=== PATIENT | female | born 1950 | race Caucasian/White ===

== ENCOUNTER 2016-08-12 18:19 | Emergency (ER) | payer BC ==
[~2016-08-12] VITALS: Ht 165.1 cm; Wt 72.6 kg
[~2016-08-12 18:19] MED LIST: AMLO10TA2 PO; LISI40TA PO
[2016-08-12] MEDS ORDERED: ONDANSETRON PF 4 MG/2 ML VIAL. IV ONE (19:00)
[2016-08-12 19:14] LABS: BASO # 0.1 x10^3/uL (0.0-0.2); BASO % 1 % (0-3); EOS % 3 % (0-3); HEMATOCRIT 44.5 % (36.0-47.0); HEMOGLOBIN 15.1 g/dL (12.0-15.5); LYMPH # 5.2 x10^3/uL (1.0-4.8); LYMPH % 44 % (24-48); MEAN CORPUSCULAR HEMOGLOBIN 32 pg (25-35); MEAN CORPUSCULAR HGB CONC 34 g/dL (31-37); MEAN CORPUSCULAR VOLUME 96 fL (79-100); MONO % 6 % (0-9); NEUT % 46 % (31-73); PLATELET COUNT 209 x10^3/uL (140-400); RED BLOOD COUNT 4.65 x10^6/uL (3.50-5.40); RED CELL DISTRIBUTION WIDTH 12.9 % (11.5-14.5); WHITE BLOOD COUNT 11.9 x10^3/uL (4.0-11.0)
[2016-08-12 19:23] LABS: CREATININE 0.9 mg/dL (0.6-1.0); POTASSIUM 3.3 mmol/L (3.5-5.1)
--- NOTE | 2016-08-12 19:28 | RAD ---
PQRS STATEMENT One or more of the following individualized dose reduction techniques were utilized for this study: 1.Automated exposure control 2.Adjustment of the mA and/or kV according to patient size 3.Use of iterative reconstruction technique CT HEAD INDICATION:sudden onset severe dizziness at 1800 today, prior sentReason: sudden onset vertigo, mild headache / Spl. Instructions: / History: COMPARISON:CT head from October 07 2006 TECHNIQUE: 5 mm contiguous axial images were obtained from the skull base to the vertex in both bone and soft tissue algorithm. FINDINGS: There is prominence of the ventricles and sulci in a pattern compatible with generalized cerebral volume loss. There are vague areas of low attenuation in the periventricular white matter in a symmetric fashion suggestive of chronic small vessel ischemic disease. No evidence of acute intracranial hemorrhage. No extra-axial fluid collections. No mass effect or midline shift. Ventricular size is appropriate. Basal cisterns are patent. No fractures identified. Brandon-white differentiation is preserved. Globes and orbits are within normal limits. Paranasal sinuses and mastoid air cells are clear. IMPRESSION: No acute intracranial hemorrhage or gross mass effect. Electronically signed by: Anthony Cherry (August 12, 2016 19:27:33)
[2016-08-12 19:29] LABS: TOTAL BILIRUBIN 0.5 mg/dL (0.2-1.0); TOTAL PROTEIN 7.9 g/dL (6.4-8.2)
[2016-08-12 20:30] VITALS: BP 123/68
[2016-08-12] MEDS ORDERED: MECL25TA3 PO (21:59)
--- NOTE | 2016-08-12 21:59 | PHYS DOC ---
Past Medical History Past Medical History: Diverticulitis, Hypertension, Stroke Past Surgical History: Appendectomy, Cholecystectomy, Hysterectomy, Other Additional Past Surgical Histo: part of colon/intestines removed Alcohol Use: None Drug Use: None Adult General Chief Complaint Chief Complaint: dizziness HPI HPI Patient is a 65 year old female who presents by EMS with acute onset of dizziness while at the [facility]. Patient states she was feeling fine, she was sitting at the [facility], she began to feel very dizzy," hit her" suddenly. She got up and felt like she couldn't walk straight, she was very dizzy, she ran into a machine. Someone called EMS and she had some IV Zofran en route. She does not feel much better. She has a headache but describes it as "not bad". This is the third time in a month that she has had an episode of this type of dizziness. The other 2 have not been this bad. About 1 month ago, she had an episode, also while at the [facility], that lasted about 1 minute. It was not as severe and she did not try to get up and walk. Then this past Wednesday she had another very short episode it went away" no time at all". Today's episode is more severe and has not gone away by itself. It is associated with nausea and dry heaves. Patient "doesn't like to go to the doctor" she "doesn't like to take medicine" and she states she is in good general health. Review of Systems Review of Systems Constitutional: Denies fever or chills [] Eyes: Denies change in visual acuity, redness, or eye pain [] HENT: Denies nasal congestion or sore throat [] Respiratory: Denies cough or shortness of breath [] Cardiovascular: Denies chest pain GI: Denies abdominal pain, bloody stools or diarrhea [] : Denies dysuria or hematuria [] Musculoskeletal: Denies back pain or joint pain [] Integument: Denies rash or skin lesions [] Neurologic: As in history of present illness. Denies focal weakness. Current Medications Current Medications Current Medications Medications (Trade) Dose Ordered Sig/Lalo Start Time Stop Time Status Last Admin Dose Admin Diazepam (Valium) 10 mg 1X ONCE 08/12/16 20:15 08/12/16 20:16 DC 08/12/16 20:15 10 MG Ondansetron HCl (Zofran) 4 mg 1X ONCE 08/12/16 19:00 08/12/16 19:01 DC 08/12/16 19:00 4 MG Allergies Allergies Allergies Coded Allergies Type Severity Reaction Last Updated Verified hydrocodone Allergy Mild nausea/vomiting 08/27/13 Yes Physical Exam Physical Exam Constitutional: Well developed, well nourished, appears to be having acute vertigo, worsens with position change, dry heaves from time to time HENT: Normocephalic, atraumatic, bilateral external ears normal, oropharynx moist, no oral exudates, nose normal. [] Eyes: PERRLA, EOMI, conjunctiva normal, no discharge. [] Neck: Normal range of motion, no stridor. [] Cardiovascular:Heart rate regular rhythm, no murmur [] Lungs & Thorax: Bilateral breath sounds clear to auscultation [] Abdomen: Bowel sounds normal, soft, no tenderness, no masses, no pulsatile masses. [] Skin: Warm, dry, no erythema, no rash. [] Extremities: No tenderness, no cyanosis, no clubbing, ROM intact, no edema. 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 [] Current Patient Data Vital Signs Vital Signs Date Time Temp Pulse Resp B/P Pulse Ox O2 Delivery O2 Flow Rate FiO2 08/12/16 20:30 52 18 123/68 94 Room Air 08/12/16 18:30 97.8 97.8 Lab Values Laboratory Tests Test 08/12/16 18:32 08/12/16 18:55 White Blood Count 11.9x10^3/uL (4.0-11.0) H Red Blood Count 4.65x10^6/uL (3.50-5.40) Hemoglobin 15.1g/dL (12.0-15.5) Hematocrit 44.5% (36.0-47.0) Mean Corpuscular Volume 96fL (79-100) Mean Corpuscular Hemoglobin 32pg (25-35) Mean Corpuscular Hemoglobin Concent 34g/dL (31-37) Red Cell Distribution Width 12.9% (11.5-14.5) Platelet Count 209x10^3/uL (140-400) Neutrophils (%) (Auto) 46% (31-73) Lymphocytes (%) (Auto) 44% (24-48) Monocytes (%) (Auto) 6% (0-9) Eosinophils (%) (Auto) 3% (0-3) Basophils (%) (Auto) 1% (0-3) Neutrophils # (Auto) 5.5x10^3uL (1.8-7.7) Lymphocytes # (Auto) 5.2x10^3/uL (1.0-4.8) H Monocytes # (Auto) 0.7x10^3/uL (0.0-1.1) Eosinophils # (Auto) 0.4x10^3/uL (0.0-0.7) Basophils # (Auto) 0.1x10^3/uL (0.0-0.2) Sodium Level 139mmol/L (136-145) Potassium Level 3.3mmol/L (3.5-5.1) L Chloride Level 100mmol/L (98-107) Carbon Dioxide Level 25mmol/L (21-32) Anion Gap 14 (6-14) Blood Urea Nitrogen 14mg/dL (7-20) Creatinine 0.9mg/dL (0.6-1.0) Estimated GFR (Cockcroft-Gault) 63.0 BUN/Creatinine Ratio 16 (6-20) Glucose Level 105mg/dL (70-99) H Calcium Level 9.0mg/dL (8.5-10.1) Total Bilirubin 0.5mg/dL (0.2-1.0) Aspartate Amino Transferase (AST) 22U/L (15-37) Alanine Aminotransferase (ALT) 41U/L (14-59) Alkaline Phosphatase 61U/L (46-116) Total Protein 7.9g/dL (6.4-8.2) Albumin 4.0g/dL (3.4-5.0) Albumin/Globulin Ratio 1.0 (1.0-1.7) Laboratory Tests 08/12/16 18:32 Laboratory Tests 08/12/16 18:55 EKG EKG 12-lead EKG read by me. Sinus rhythm. Heart rate 85. There are no acute ST or T wave changes indicative of ischemia or infarction. No STEMI. 1828 [] Radiology/Procedures Radiology/Procedures CT scan of the head was interpreted by the radiologist, negative for acute findings. [] Course & Med Decision Making Course & Med Decision Making Pertinent Labs and Imaging studies reviewed. (See chart for details) 65-year-old female with acute onset of vertigo with only a mild headache and no other neurologic symptoms. The vertigo is very positional. I suspect benign positional/labyrinthine vertigo. Discussed with the patient that we will give her some IV medications for vertigo, check labs and CT, she is agreeable to that plan. CT, labs negative for acute findings. The patient had a dose of IV Valium 5 mg and had slight improvement but not significant improvement. She continued to be very alert. I repeated a dose of IV Valium 10 mg which put her to sleep. She slept soundly for about an hour, she woke up and stated her vertigo and headache were gone. Patient's son is here to take her home. I discussed benign positional vertigo with the patient and her son. Prescription for meclizine for when necessary use should the vertigo returned. I advised ENT follow-up if it continues or returns [] Dragon Disclaimer Dragon Disclaimer This electronic medical record was generated, in whole or in part, using a voice recognition dictation system. Departure Departure Impression: Primary Impression: Benign positional vertigo Disposition: 01 HOME, SELF-CARE Condition: IMPROVED Referrals: EMMANUEL HANSEN MD (PCP) Patient Instructions: Benign Positional Vertigo Additional Instructions: Home to rest. No driving for 12 hours due to the medications he was given in the emergency department. If vertigo returns or persists, take meclizine as directed. No driving while taking this, it may be sedating. If vertigo persists for more than 2-3 days, see your doctor or see Ear nose and throat doctor, this may be an inner ear disturbance. Scripts Meclizine Hcl 25 Mg Tablet1 Tab PO TID PRN vertigo #30 TAB As needed for vertigo Prov:GEORGIA MENDOZA MD 08/12/16 GEORGIA MENDOZA MD August 12, 2016 21:59
--- NOTE | 2016-08-13 06:48 | EKG ---
[facility] [address] [place] [address] Test Date: 2016-08-12 Test Time: 18:28:28 Pat Name: MATTHEW SHAW Department: Room: Gender: F Towing Pilot: DINAH : 1950 Requested By: GEORGIA MENDOZA Order Number: [id number] Reading MD: Chery Maria Measurements Intervals [place] Rate: 55 P: [place]: QRS: -2 QRSD: 98 T: 24 QT: 458 QTc: 440 Interpretive Statements ATRIAL FIBRILLATION LEFTWARD AXIS INCOMPLETE RIGHT BUNDLE BRANCH BLOCK QRS(T) CONTOUR ABNORMALITY CONSIDER ANTEROLATERAL MYOCARDIAL DAMAGE RI6.01 Unconfirmed report No previous ECG available for comparison Electronically Signed On 08-16-2016 17:34:49 CDT by Chery Maria
== END 2016-08-12 22:05 | disposition home or self-care (01) ==
LOC: ER 18:19
DX: H81.10 Benign paroxysmal vertigo, unspecified ear (principal); I10 Essential (primary) hypertension; I48.91 Unspecified atrial fibrillation; Z90.710 Acquired absence of both cervix and uterus; Z90.49 Acquired absence of other specified parts of digestive tract; Z98.890 Other specified postprocedural states; Z86.73 Personal history of transient ischemic attack (TIA), and cerebral infarction without residual deficits; Z88.5 Allergy status to narcotic agent
CPT/HCPCS: 36415; 70450; 80053; 85027; 93005; 96374; 96375; 96376; 99285; J2405; J3360

== ENCOUNTER 2016-11-05 10:38 | Emergency (ER) | payer BC ==
[~2016-11-05] VITALS: Ht 172.7 cm; Wt 72.6 kg
[~2016-11-05 10:38] MED LIST changes: +MECL25TA3 PO
--- NOTE | 2016-11-05 11:32 | PHYS DOC ---
Past Medical History Past Medical History: Diverticulitis, Hypertension, Stroke Past Surgical History: Appendectomy, Cholecystectomy, Hysterectomy, Other Additional Past Surgical Histo: part of colon/intestines removed Additional Information: 1 PPD Alcohol Use: None Drug Use: None Adult General Chief Complaint Chief Complaint: DIZZY/LIGHT HEADED HPI HPI Patient is a 65 year old female who presents with complaint of near syncopal episode. Patient states that this took place shortly prior to arrival. Patient states that she stood up suddenly and became very dizzy and lightheaded. Patient states that she felt like she was going to "fall out." The patient states that she started getting darkening of vision but states that she did not fully pass out. The patient states that she has had a similar episode 2 months ago. Patient denied any associated chest pain with her symptoms. The patient has history of hypertension and CVA with no noticeable residual deficits. Patient family state that the patient has had mild symptoms of dizziness with standing over the past several months. The patient was supposed to follow-up with Dr. Valiente of neurology for EEG testing after her last episode 2 months ago but has not completed this. Patient states that she has clouding of her vision currently but that it has been improved from onset of symptoms. Patient denies any shortness of breath or nausea currently. Review of Systems Review of Systems Constitutional: Denies fever or chills [] Eyes: Denies change in visual acuity, redness, or eye pain [] HENT: Denies nasal congestion or sore throat [] Respiratory: Denies cough or shortness of breath [] Cardiovascular: Near syncope, denies chest pain [] GI: Denies abdominal pain, nausea, vomiting, bloody stools or diarrhea [] : Denies dysuria or hematuria [] Musculoskeletal: Denies back pain or joint pain [] Integument: Denies rash or skin lesions [] Neurologic: Denies headache, focal weakness or sensory changes [] Current Medications Current Medications Current Medications Medications (Trade) Dose Ordered Sig/Lalo Start Time Stop Time Status Last Admin Dose Admin Sodium Chloride 1,000 ml @ 1,000 mls/hr Q1H 11/05/16 12:00 11/05/16 12:59 DC 11/05/16 11:44 1,000 MLS/HR Allergies Allergies Allergies Coded Allergies Type Severity Reaction Last Updated Verified hydrocodone Allergy Mild nausea/vomiting 08/27/13 Yes Physical Exam Physical Exam Constitutional: Well developed, well nourished, afebrile, appears mildly anxious. [] HENT: Normocephalic, atraumatic, bilateral external ears normal, oropharynx moist, no oral exudates, nose normal. [] Eyes: PERRLA, EOMI, conjunctiva normal, no discharge. [] Neck: Normal range of motion, no tenderness, supple, no stridor. [] Cardiovascular:Heart rate regular rhythm, no murmur [] Lungs & Thorax: Bilateral breath sounds clear to auscultation [] Abdomen: Bowel sounds normal, soft, no tenderness, no masses, no pulsatile masses. [] Skin: Warm, dry, no erythema, no rash. [] Back: No tenderness, no CVA tenderness. [] Extremities: No tenderness, no cyanosis, no clubbing, ROM intact, no edema. [] Neurologic: Alert and oriented X 3, normal motor function, normal sensory function, no focal deficits noted. [] Current Patient Data Vital Signs Vital Signs Date Time Temp Pulse Resp B/P (MAP) Pulse Ox O2 Delivery O2 Flow Rate FiO2 11/05/16 13:37 53 18 132/89 (103) 98 Room Air 11/05/16 10:58 98.3 98.3 Lab Values Laboratory Tests Test 11/05/16 11:05 11/05/16 11:19 11/05/16 11:23 Urine Collection Type Void Urine Color Yellow Urine Clarity Clear Urine pH 6.0 Urine Specific [place] 1.010 Urine Protein Negative mg/dL (NEG-TRACE) Urine Glucose (UA) Negative mg/dL (NEG) Urine Ketones (Stick) Negative mg/dL (NEG) Urine Blood Moderate (NEG) Urine Nitrite Negative (NEG) Urine Bilirubin Negative (NEG) Urine Urobilinogen Dipstick 0.2 mg/dL (0.2 mg/dL) Urine Leukocyte Esterase Negative (NEG) Urine RBC Rare /HPF (0-2) Urine WBC Rare /HPF (0-4) Urine Squamous Epithelial Cells Occ /LPF Urine Bacteria Few /HPF (0-FEW) Glucose (Fingerstick) 114 mg/dL (70-99) H White Blood Count 9.3 x10^3/uL (4.0-11.0) Red Blood Count 4.64 x10^6/uL (3.50-5.40) Hemoglobin 15.1 g/dL (12.0-15.5) Hematocrit 44.4 % (36.0-47.0) Mean Corpuscular Volume 96 fL (79-100) Mean Corpuscular Hemoglobin 33 pg (25-35) Mean Corpuscular Hemoglobin Concent 34 g/dL (31-37) Red Cell Distribution Width 12.7 % (11.5-14.5) Platelet Count 209 x10^3/uL (140-400) Neutrophils (%) (Auto) 61 % (31-73) Lymphocytes (%) (Auto) 27 % (24-48) Monocytes (%) (Auto) 7 % (0-9) Eosinophils (%) (Auto) 4 % (0-3) H Basophils (%) (Auto) 1 % (0-3) Neutrophils # (Auto) 5.7 x10^3uL (1.8-7.7) Lymphocytes # (Auto) 2.5 x10^3/uL (1.0-4.8) Monocytes # (Auto) 0.6 x10^3/uL (0.0-1.1) Eosinophils # (Auto) 0.4 x10^3/uL (0.0-0.7) Basophils # (Auto) 0.1 x10^3/uL (0.0-0.2) Sodium Level 141 mmol/L (136-145) Potassium Level 4.3 mmol/L (3.5-5.1) Chloride Level 103 mmol/L (98-107) Carbon Dioxide Level 25 mmol/L (21-32) Anion Gap 13 (6-14) Blood Urea Nitrogen 12 mg/dL (7-20) Creatinine 0.9 mg/dL (0.6-1.0) Estimated GFR (Cockcroft-Gault) 63.0 BUN/Creatinine Ratio 13 (6-20) Glucose Level 106 mg/dL (70-99) H Calcium Level 9.5 mg/dL (8.5-10.1) Magnesium Level 2.0 mg/dL (1.8-2.4) Total Bilirubin 0.5 mg/dL (0.2-1.0) Aspartate Amino Transferase (AST) 27 U/L (15-37) Alanine Aminotransferase (ALT) 39 U/L (14-59) Alkaline Phosphatase 76 U/L (46-116) Creatine Kinase 175 U/L (26-192) Creatine Kinase MB (Mass) 1.2 ng/mL (0.0-3.6) Creatine Kinase MB Relative Index 0.7 % (0-4) Troponin I Quantitative < 0.017 ng/mL (0.000-0.055) Total Protein 7.5 g/dL (6.4-8.2) Albumin 4.2 g/dL (3.4-5.0) Albumin/Globulin Ratio 1.3 (1.0-1.7) Laboratory Tests 11/05/16 11:23 Laboratory Tests 11/05/16 11:23 EKG EKG Interpreted by me: Heart rate 52, sinus rhythm, normal intervals, leftward axis , no acute ST elevations or depressions [] Radiology/Procedures Radiology/Procedures [address] [address] IMAGING REPORT Signed PATIENT: MATTHEW SHAW ACCOUNT: [id number] : 1950 LOCATION: ER AGE: 65 SEX: F EXAM STATUS: REG ER ORD. PHYSICIAN: UMER BALLESTEROS MD REASON: near syncope PROCEDURE: PORTABLE CHEST 1V Single AP chest radiograph 11/05/2016 Indication: Syncope. Comparison: Chest radiograph 09/22/2010. Findings: Cardiac and mediastinal silhouettes are within normal limits. No pleural effusion, pneumothorax or focal consolidation. There is minimal bibasilar atelectasis. Impression: Minimal bibasilar atelectasis without evidence for acute consolidating pneumonia or CHF. DICTATED and SIGNED BY: [place] MARLEY MD DATE: 11/05/16 1150 CC: UMER BALLESTEROS MD; EMMANUEL HANSEN MD ~ [address] [address] IMAGING REPORT Signed PATIENT: MATTHEW SHAW ACCOUNT: [id number] : 1950 LOCATION: ER AGE: 65 SEX: F EXAM STATUS: REG ER ORD. PHYSICIAN: UMER BALLESTEROS MD REASON: dizziness PROCEDURE: CT HEAD WO CONTRAST CT of the head without contrast, 11/05/2016: History: Dizziness Comparison is made to a study from 08/12/2016. The ventricles are within normal limits in size. There is no shift of the midline structures. There is no evidence of acute intracranial hemorrhage or mass effect. There are unchanged patchy lucencies in the deep white matter bilaterally compatible with chronic ischemic change. IMPRESSION: 1. Unchanged bilateral deep white matter lucencies compatible with chronic ischemic change. 2. No acute intracranial abnormality is detected. RS Compliance Statement: One or more of the following individualized dose reduction techniques were utilized for this examination: 1. Automated exposure control 2. Adjustment of the mA and/or kV according to patient size 3. Use of iterative reconstruction technique DICTATED and SIGNED BY: LORAINE HOLLAND MD DATE: 11/05/16 1213 CC: UMER BALLESTEROS MD; EMMANUEL HANSEN MD ~ [] Course & Med Decision Making Course & Med Decision Making Pertinent Labs and Imaging studies reviewed. (See chart for details) Patient's lab work and imaging are unremarkable. Patient was given IV fluids in the emergency department. On reevaluation, patient states that she feels much better and all symptoms have resolved. The patient was able to ambulate in the emergency department with no dizziness and with an unfaltering gait. The patient states that she wants to go home at this time. The patient's symptoms may have been secondary to orthostatic hypotension, however further workup will be needed. The patient is appropriate for outpatient workup at this time. The patient was instructed to follow-up with the cardiology clinic in 2 days for reevaluation. The patient was also referred back to Dr. Valiente to complete her outpatient workup in the next 1-2 weeks. Advised return emergency department for any worsening symptoms. Patient voiced understanding and in agreement with treatment plan. Dragon Disclaimer Dragon Disclaimer This electronic medical record was generated, in whole or in part, using a voice recognition dictation system. Departure Departure Impression: Primary Impression: Near syncope Disposition: 01 HOME, SELF-CARE Condition: IMPROVED Referrals: EMMANUEL HANSEN MD (PCP) ELIJAH SHULTZ MD, FERILYN MD Patient Instructions: Near-Syncope Additional Instructions: Follow-up with Dr. Shultz of cardiology in the next 2-3 days for reevaluation. Follow-up with Dr. Valiente of neurology in the next 1-2 weeks for reevaluation. Return to the emergency department for any worsening symptoms. UMER BALLESTEROS MD Nov 05, 2016 11:32
[2016-11-05 11:46] LABS: BASO # 0.1 x10^3/uL (0.0-0.2); BASO % 1 % (0-3); EOS % 4 % (0-3); HEMATOCRIT 44.4 % (36.0-47.0); HEMOGLOBIN 15.1 g/dL (12.0-15.5); LYMPH # 2.5 x10^3/uL (1.0-4.8); LYMPH % 27 % (24-48); MEAN CORPUSCULAR HEMOGLOBIN 33 pg (25-35); MEAN CORPUSCULAR HGB CONC 34 g/dL (31-37); MEAN CORPUSCULAR VOLUME 96 fL (79-100); MONO % 7 % (0-9); NEUT % 61 % (31-73); PLATELET COUNT 209 x10^3/uL (140-400); RED BLOOD COUNT 4.64 x10^6/uL (3.50-5.40); RED CELL DISTRIBUTION WIDTH 12.7 % (11.5-14.5); WHITE BLOOD COUNT 9.3 x10^3/uL (4.0-11.0)
--- NOTE | 2016-11-05 11:49 | EKG ---
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
[2016-11-05 11:54] LABS: CALCIUM 9.5 mg/dL (8.5-10.1); CREATININE 0.9 mg/dL (0.6-1.0); POTASSIUM 4.3 mmol/L (3.5-5.1)
--- NOTE | 2016-11-05 11:54 | RAD ---
Single AP chest radiograph 11/05/2016 Indication: Syncope. Comparison: Chest radiograph 09/22/2010. Findings: Cardiac and mediastinal silhouettes are within normal limits. No pleural effusion, pneumothorax or focal consolidation. There is minimal bibasilar atelectasis. Impression: Minimal bibasilar atelectasis without evidence for acute consolidating pneumonia or CHF.
[2016-11-05 12:00] LABS: ALBUMIN 4.2 g/dL (3.4-5.0); ALBUMIN/GLOBULIN RATIO 1.3 (1.0-1.7); TOTAL BILIRUBIN 0.5 mg/dL (0.2-1.0); TOTAL PROTEIN 7.5 g/dL (6.4-8.2)
[2016-11-05] MEDS ORDERED: IV NORMAL SALINE 1000ML BAG 1,000 ML IV SCH (12:00)
[2016-11-05 12:04] LABS: BILIRUBIN,URINE NEGATIVE (NEG); GLUCOSE,URINE NEGATIVE (NEG); NITRITE,URINE NEGATIVE (NEG); PROTEIN,URINE NEGATIVE (NEG-TRACE); UROBILINOGEN,URINE 0.2 mg/dL (0.2 mg/dL)
[2016-11-05 12:07] LABS: CKMB MASS 1.2 ng/mL (0.0-3.6)
--- NOTE | 2016-11-05 12:19 | RAD ---
CT of the head without contrast, 11/05/2016: History: Dizziness Comparison is made to a study from 08/12/2016. The ventricles are within normal limits in size. There is no shift of the midline structures. There is no evidence of acute intracranial hemorrhage or mass effect. There are unchanged patchy lucencies in the deep white matter bilaterally compatible with chronic ischemic change. IMPRESSION: 1. Unchanged bilateral deep white matter lucencies compatible with chronic ischemic change. 2. No acute intracranial abnormality is detected. PQRS Compliance Statement: One or more of the following individualized dose reduction techniques were utilized for this examination: 1. Automated exposure control 2. Adjustment of the mA and/or kV according to patient size 3. Use of iterative reconstruction technique
[2016-11-05 12:26] LABS: BACTERIA,URINE FEW /HPF (0-FEW); RBC,URINE RARE /HPF (0-2); SQUAMOUS EPITHELIAL CELL,UR OCC /LPF; WBC,URINE RARE /HPF (0-4)
[2016-11-05 13:37] VITALS: BP 132/89
== END 2016-11-05 13:37 | disposition home or self-care (01) ==
LOC: ER 10:38
DX: R55 Syncope and collapse (principal); Z86.73 Personal history of transient ischemic attack (TIA), and cerebral infarction without residual deficits; I10 Essential (primary) hypertension; Z90.49 Acquired absence of other specified parts of digestive tract; Z90.710 Acquired absence of both cervix and uterus; Z88.6 Allergy status to analgesic agent
CPT/HCPCS: 36415; 70450; 71010; 80053; 81001; 82553; 82962; 83735; 84484; 85027; 93005; 96360; 99285; J7030

== ENCOUNTER → 2016-11-13 | Outpatient (CLI) | payer BC ==
[2016-11-05 13:37] VITALS: BP 132/89
--- NOTE | 2016-11-13 18:06 | EEG ---
DATE OF SERVICE: 11/13/2016 EEG NUMBER: [id number] OBJECTIVE: This is a 65-year-old female patient with history of confusional episodes. EEG was requested to evaluate cerebral activity. METHODS: Twenty electrodes were applied according to the international 10-20 electrode placement system. EKG monitoring, hyperventilation, intermittent photic stimulation, monopolar and bipolar montages are routinely utilized. The record was obtained on a digital system with video monitoring. FINDINGS: 1. Background The patient was recorded in the awake and drowsy states. No sleep state was recorded. The overall background amplitude is 10-25 microvolts. A posterior dominant rhythm of 8-10 Hz is observed. 2. Abnormalities: No specific epileptiform discharge or electrographic seizure is seen. No focal or diffuse slowing. 3. Activation: Hyperventilation was performed with good efforts and normal response. Intermittent photic stimulation was performed with photic driving. IMPRESSION: This EEG is a normal study for the awake, drowsy, and sleep states. No focal, lateralizing, specific epileptiform discharge or electrographic seizure is seen. KYLER DAI MD DR: KIARA/jil JOB#: [id number] / [id number]
== END | disposition home or self-care (01) ==
LOC: RT 08:27
PROVIDERS: ATTEND Psychiatry & Neurology Neurology
DX: F31.89 Other bipolar disorder (principal); R06.4 Hyperventilation; R41.0 Disorientation, unspecified
CPT/HCPCS: 95816

== ENCOUNTER → 2017-09-17 | Outpatient (CLI) | payer BC | END | disposition home or self-care (01) | LOC: KCIC US 14:49 | DX: M79.604 Pain in right leg (principal); G62.9 Polyneuropathy, unspecified | CPT/HCPCS: 93922; 93971 ==

== ENCOUNTER → 2017-10-14 | Outpatient (CLI) | payer BC ==
[~2017-10-14] MED LIST changes: -AMLO10TA2 PO; +CONTRAST GIVEN. MC; +HEPARIN for IV BOLUS 10,000 UNIT/10 ML VIAL.; +IODIXANOL 320 MG/ML 100 ML VIAL.; +IODIXANOL 320MG/ML 50ML VIAL.; +LIDOCAINE WITH 8.4% SOD BICARB 3 ML DISP.SYRIN.; -LISI40TA PO; -MECL25TA3 PO; +MIDAZOLAM HCL/PF 2 MG/2 ML VIAL.; +diphenhydrAMINE 50 MG/ML VIAL; +fentaNYL PF VIAL 100 MCG/2 ML VIAL
[2017-10-14 07:25] LABS: ADD MAN DIFF? NO
[2017-10-14 07:44] LABS: BASO # 0.1 x10^3/uL (0.0-0.2); BASO % 1 % (0-3); EOS # 0.1 x10^3/uL (0.0-0.7); EOS % 1 % (0-3); HEMATOCRIT 44.3 % (36.0-47.0); HEMOGLOBIN 15.2 g/dL (12.0-15.5); LYMPH # 1.2 x10^3/uL (1.0-4.8); LYMPH % 16 % (24-48); MEAN CORPUSCULAR HEMOGLOBIN 32 pg (25-35); MEAN CORPUSCULAR HGB CONC 34 g/dL (31-37); MEAN CORPUSCULAR VOLUME 94 fL (79-100); MONO # 0.2 x10^3/uL (0.0-1.1); MONO % 3 % (0-9); NEUT # 6.3 x10^3uL (1.8-7.7); NEUT % 80 % (31-73); PLATELET COUNT 236 x10^3/uL (140-400); RED CELL DISTRIBUTION WIDTH 12.9 % (11.5-14.5); WHITE BLOOD COUNT 7.8 x10^3/uL (4.0-11.0)
[2017-10-14 07:52] LABS: ANION GAP 8 (6-14); BLOOD UREA NITROGEN 20 mg/dL (7-20); CALCIUM 8.7 mg/dL (8.5-10.1); CARBON DIOXIDE 25 mmol/L (21-32); CHLORIDE 103 mmol/L (98-107); GFR 55.6; GLUCOSE 165 mg/dL (70-99); POTASSIUM 3.8 mmol/L (3.5-5.1); SODIUM 136 mmol/L (136-145)
[2017-10-14 08:12] LABS: PROTHROMBIN TIME PATIENT 12.2 SEC (11.7-14.0)
[2017-10-14] MEDS: LIDOCAINE WITH 8.4% SOD BICARB 3 ML DISP.SYRIN. IJ (09:15)
[2017-10-14] MEDS: IODIXANOL 320 MG/ML 100 ML VIAL. IART (09:15)
[2017-10-14] MEDS: MIDAZOLAM HCL/PF 2 MG/2 ML VIAL. IV (09:15)
[2017-10-14] MEDS: fentaNYL PF VIAL 100 MCG/2 ML VIAL IV (09:15)
[2017-10-14] MEDS: HEPARIN for IV BOLUS 10,000 UNIT/10 ML VIAL. IV (09:15)
[2017-10-14] MEDS: diphenhydrAMINE 50 MG/ML VIAL IVP (09:15)
== END | disposition home or self-care (01) ==
LOC: INTRAD 06:25
DX: I70.291 Other atherosclerosis of native arteries of extremities, right leg (principal); I70.92 Chronic total occlusion of artery of the extremities; I10 Essential (primary) hypertension; F17.200 Nicotine dependence, unspecified, uncomplicated; Z88.5 Allergy status to narcotic agent; Z88.8 Allergy status to other drugs, medicaments and biological substances
CPT/HCPCS: 36246; 36247; 36415; 75625; 75716; 76937; 80048; 85025; 85610; 99152; 99153; C1713; C1769; C1892; C1894; G0269; J1200; J1644; J2250; J3010